=== PATIENT | male | born 1950 | race Asian ===

== ENCOUNTER 2019-03-10 05:45 | Day surgery (SDC) | payer OTHER ==
[~2019-03-10] VITALS: Ht 175.3 cm; Wt 62.3 kg
[~2019-03-10 05:45] MED LIST: SODIUM CHLORIDE 0.9% 1,000 ML IV ONE
[2019-03-10] MEDS ORDERED: SODIUM CHLORIDE 0.9% 1,000 ML IV ONE (07:00)
[2019-03-10] MEDS ORDERED: MIDAZOLAM HCL 2 MG/2 ML VIAL ONE (07:34)
[2019-03-10] MEDS ORDERED: FentaNYL CITRATE-PF 100 MCG/2 ML VIAL ONE (07:35)
[2019-03-10] MEDS ORDERED: MethylPREDNISolone SOD SUCC 125 MG/2 ML VIAL IVP ONE (08:15)
[2019-03-10] MEDS ORDERED: MethylPREDNISolone SOD SUCC 125 MG/2 ML VIAL ONE (08:22)
[2019-03-10] MEDS ORDERED: LIDOCAINE 4% 50 ML SOLUTION ONE (17:47)
[2019-03-10] MEDS ORDERED: BENZOCAINE 20% 50 MCG/SPRAY 57 GM ONE (17:47)
[2019-03-10] MEDS ORDERED: LIDOCAINE 2% 30 ML JELLY ONE (17:47)
[2019-03-10] MEDS ORDERED: ALBUTEROL SULFATE 2.5 MG/0.5 ML NEB SOLUTION NEB ONE (17:47)
[2019-03-10] MEDS ORDERED: OXYGEN THERAPY IH SCH (20:00)
== END 2019-03-10 10:00 | disposition home or self-care (01) ==
LOC: SURGERY 05:45
PROVIDERS: ATTEND Internal Medicine Critical Care Medicine
DX: J38.4 Edema of larynx (principal); B37.0 Candidal stomatitis; J42 Unspecified chronic bronchitis; J98.8 Other specified respiratory disorders; Z86.11 Personal history of tuberculosis; Z87.891 Personal history of nicotine dependence; Z72.89 Other problems related to lifestyle; Z79.899 Other long term (current) drug therapy; Z98.890 Other specified postprocedural states
CPT/HCPCS: 31623; 31624; 71045; 87015; 87070; 87101; 87205; 87206; 87220; J2250; J2930; J3010; J7030

== ENCOUNTER 2020-03-08 06:33 | Day surgery (SDC) | payer MEDICARE, MEDICAID ==
[~2020-03-08] VITALS: Ht 172.7 cm; Wt 62.0 kg
[~2020-03-08 06:33] MED LIST changes: +SODIUM CHLORIDE 0.9% 1,000 ML ONE
[2020-03-08] MEDS ORDERED: ATOR40TA28 PO (07:28)
[2020-03-08] MEDS ORDERED: TERA2CAP10 PO (07:28)
[2020-03-08] MEDS ORDERED: FAMO20 PO (07:28)
[2020-03-08] MEDS ORDERED: PRED10 PO (07:28)
[2020-03-08] MEDS ORDERED: MEMA28CA5 PO (07:28)
[2020-03-08] MEDS ORDERED: FLUT1BLS IH (07:28)
[2020-03-08] MEDS ORDERED: MONT10TA21 PO (07:28)
[2020-03-08] MEDS ORDERED: MethylPREDNISolone SOD SUCC 125 MG/2 ML VIAL IVP ONE (08:45)
[2020-03-08] MEDS ORDERED: MethylPREDNISolone SOD SUCC 125 MG/2 ML VIAL ONE (09:33)
[2020-03-08] MEDS ORDERED: FentaNYL CITRATE-PF 100 MCG/2 ML VIAL ONE (09:42)
[2020-03-08] MEDS ORDERED: MIDAZOLAM HCL 2 MG/2 ML VIAL ONE (09:42)
[2020-03-08] MEDS ORDERED: BENZOCAINE 20% 50 MCG/SPRAY 57 GM ONE (17:21)
[2020-03-08] MEDS ORDERED: ALBUTEROL SULFATE 2.5 MG/0.5 ML NEB SOLUTION NEB ONE (17:21)
[2020-03-08] MEDS ORDERED: LIDOCAINE 2% 30 ML JELLY ONE ×2 (17:21)
[2020-03-08] MEDS ORDERED: OXYGEN THERAPY IH SCH (20:00)
== END 2020-03-08 10:50 | disposition home or self-care (01) ==
LOC: SURGERY 06:33
PROVIDERS: ATTEND Internal Medicine Critical Care Medicine
DX: J38.4 Edema of larynx (principal); B37.0 Candidal stomatitis; K21.9 Gastro-esophageal reflux disease without esophagitis; I10 Essential (primary) hypertension; E78.5 Hyperlipidemia, unspecified; F17.210 Nicotine dependence, cigarettes, uncomplicated; Z98.890 Other specified postprocedural states
CPT/HCPCS: 31623; 31624; 71045; 87015; 87070; 87101; 87205; 87206; 87220; 87635; 88108; 88312; J2250; J2930; J3010; J7030; J7613

== ENCOUNTER 2021-05-26 07:06 | Day surgery (SDC) | payer MEDICARE, MEDICAID ==
[2021-05-23 11:31] LABS: COVID AG,FIA SOURCE NASOPHARYNGEAL
[~2021-05-26] VITALS: Ht 175.3 cm; Wt 62.3 kg
[~2021-05-26 07:06] MED LIST changes: +ATOR40TA28 PO; +FAMO20 PO; +FLUT1BLS IH; +MEMA28CA16 PO; +MONT-35 PO; +PRED10 PO; -SODIUM CHLORIDE 0.9% 1,000 ML ONE; +TERA2CAP10 PO
[2021-05-26] MEDS ORDERED: LIDOCAINE 2% 30 ML JELLY TP ONE (07:07)
[2021-05-26] MEDS ORDERED: ALBUTEROL SULFATE 2.5 MG/0.5 ML NEB SOLUTION NEB ONE (07:07)
[2021-05-26] MEDS ORDERED: BENZOCAINE 20% 50 MCG/SPRAY 57 GM TP ONE (07:07)
[2021-05-26] MEDS ORDERED: LIDOCAINE 4% 50 ML SOLUTION TP ONE (07:07)
[2021-05-26] MEDS ORDERED: SODIUM CHLORIDE 0.9% 1,000 ML ONE (07:31)
[2021-05-26] MEDS ORDERED: FentaNYL CITRATE PF 100 MCG/2 ML VIAL ONE (08:21)
[2021-05-26] MEDS ORDERED: MIDAZOLAM HCL 5 MG/ML VIAL ONE (08:21)
[2021-05-26 08:47] LABS: GLUCOMETER DEV NAME(LOC) SDS.; GLUCOSE,POINT OF CARE 95 MG/DL (70-110)
[2021-05-26] MEDS ORDERED: MethylPREDNISolone SOD SUCC 125 MG/2 ML VIAL IVP ONE (09:30)
[2021-05-26] MEDS ORDERED: MethylPREDNISolone SOD SUCC 125 MG/2 ML VIAL ONE (10:05)
[2021-05-26] MEDS ORDERED: OXYGEN THERAPY IH SCH (20:00)
== END 2021-05-26 12:05 | disposition home or self-care (01) ==
LOC: SURGERY 07:06
PROVIDERS: ATTEND Internal Medicine Critical Care Medicine
DX: J38.4 Edema of larynx (principal); B37.0 Candidal stomatitis; Z79.899 Other long term (current) drug therapy; Z98.49 Cataract extraction status, unspecified eye; Z98.890 Other specified postprocedural states
CPT/HCPCS: 31623; 31624; 71045; 82962; 87015; 87070; 87101; 87205; 87206; 87220; 87426; 88108; 88184; 88185; 88312; C9803; J2250; J2930; J3010; J7030; J7613; Z7610

== ENCOUNTER 2024-04-05 06:48 | Day surgery (SDC) | payer OTHER ==
[~2024-04-05] VITALS: Ht 175.3 cm; Wt 60.8 kg
[~2024-04-05 06:48] MED LIST changes: +PRED-729 PO; -PRED10 PO; -SODIUM CHLORIDE 0.9% 1,000 ML IV ONE; +SODIUM CHLORIDE 0.9% 1,000 ML ONE
[2024-04-05] MEDS ORDERED: ALBUTEROL SULFATE 2.5 MG/0.5 ML NEB SOLUTION NEB ONE (06:49)
[2024-04-05] MEDS ORDERED: LIDOCAINE 4% 50 ML SOLUTION TP ONE (06:49)
[2024-04-05] MEDS ORDERED: BENZOCAINE 20% 50 MCG/SPRAY 57 GM TP ONE (06:49)
[2024-04-05] MEDS ORDERED: LIDOCAINE 2% 11 ML JELLY TP ONE (06:49)
[2024-04-05] MEDS: SODIUM CHLORIDE 0.9% 1,000 ML IV ONE (08:05)
[2024-04-05] MEDS ORDERED: PILO5TAB10 PO (08:36)
[2024-04-05] MEDS ORDERED: DULO-114 PO (08:36)
[2024-04-05] MEDS ORDERED: GABA-1181 PO (08:50)
[2024-04-05] MEDS ORDERED: TAMS0.4C94 PO (08:50)
[2024-04-05] MEDS ORDERED: FentaNYL CITRATE PF 100 MCG/2 ML VIAL ONE (08:59)
[2024-04-05] MEDS ORDERED: MIDAZOLAM HCL 2 MG/2 ML VIAL ONE (09:00)
[2024-04-05 09:30] VITALS: PULSE 62; RESP 18; O2SAT 97
[2024-04-05] MEDS ORDERED: MethylPREDNISolone SOD SUCC 125 MG/2 ML VIAL ONE (10:09)
[2024-04-05] MEDS: MethylPREDNISolone SOD SUCC 125 MG/2 ML VIAL IVP ONE (11:03)
== END 2024-04-05 12:20 | disposition home or self-care (01) ==
LOC: SURGERY 06:48
PROVIDERS: ATTEND Internal Medicine Critical Care Medicine
DX: R05.3 Chronic cough (principal); J38.4 Edema of larynx; B37.0 Candidal stomatitis; R04.2 Hemoptysis; R06.2 Wheezing; R49.0 Dysphonia; R91.1 Solitary pulmonary nodule
CPT/HCPCS: 31623; 87206; 87101; 87220; 87070; 88108; 31624; 71045; 87015; J3010; J2250; J2919; J7030; J7613; Z7610